=== PATIENT | male | born 1950 | race Caucasian/White ===

== ENCOUNTER 2016-11-22 08:23 | Day surgery (SDC) | payer MEDICARE, BC ==
[2016-11-22] MEDS ORDERED: Sodium Chloride 0.9% 10 ML Syringe FLUSH PRN (08:45)
[2016-11-22] MEDS ORDERED: Lactated Ringers 1,000 ML IV SCH (08:45)
[2016-11-22] MEDS ORDERED: Propofol 200 MG/20 ML SDV IV ONE (10:30)
[2016-11-22] MEDS ORDERED: Midazolam 1 MG/ML 2 ML SDV IV ONE (10:30)
--- NOTE | 2016-11-22 10:40 | PCM.OPNOTE ---
- General Post-Op/Procedure Note Date of Surgery/Procedure: 11/22/16 Operative Procedure(s): egd with bx Findings: erosive esophagtis intestinal metaplasia 10 cm hiatal hernia Pre Op Diagnosis: dysphagia Post-Op Diagnosis: erosive esophagtis. intestinal metaplasia 10 cm. hiatal hernia Anesthesia Technique: MAC Primary Surgeon: Mt Mcdowell Anesthesia Provider: Kimberly Mcmahon Pathology: DISTAL ESOPHAGUS Complications: None Condition: Good Free Text/Narrative:: SEE DICTATION
[2016-11-22 12:20] VITALS: BP 124/83
--- NOTE | 2016-11-22 16:03 | OR ---
DATE OF OPERATION: 11/22/2016 SURGEON: Mt Mcdowell MD PROCEDURE PERFORMED: Esophagogastroduodenoscopy with cold forceps biopsy. PREOPERATIVE DIAGNOSIS: Dysphagia. POSTOPERATIVE DIAGNOSIS: Hiatal hernia, 10 cm of intestinal metaplasia, and erosive esophagitis. INDICATIONS FOR PROCEDURE: This is a 66-year-old white male, who was referred with the above-mentioned complaints of dysphagia, and he was offered and accepted an EGD. After an excellent IV sedation was administered. The bite block was inserted. The flexible endoscope was passed without difficulty down the patient's esophagus into the stomach. The stomach was insufflated. The scope was passed through the pylorus to the second portion of the duodenum and then slowly withdrawn. The following findings were noted. Duodenum is unremarkable. Stomach demonstrates a hiatal hernia, and he appears to have approximately 4 to 5 cm of stomach into the chest. The esophagus reveals marked esophagitis with healing ulceration. There were also appears to be intestinal metaplasia. For a distance of approximately 10 cm. Biopsies were taken of these areas. The stomach was then deflated, and the scope was removed. The remainder of the esophageal exam was unremarkable. /[id number] /MODL
== END 2016-11-22 12:03 | disposition home or self-care (01) ==
LOC: FB.SDS 08:23
PROVIDERS: ATTEND Surgery
DX: K20.9 Esophagitis, unspecified (principal); K22.70 Barrett's esophagus without dysplasia; K44.9 Diaphragmatic hernia without obstruction or gangrene; Z79.899 Other long term (current) drug therapy; Z98.890 Other specified postprocedural states; Z87.891 Personal history of nicotine dependence
CPT/HCPCS: 00902; 43239; 88305; 88313; J2250; J2704; J7120

== ENCOUNTER 2017-10-17 11:29 | Inpatient (IN) | payer MEDICARE, BC ==
[2017-10-17] MEDS ORDERED: Aspirin 81 MG Tab.Chew PO ONE (11:38)
[2017-10-17] MEDS ORDERED: Sodium Chloride 0.9% 1,000 ML IV SCH (11:45)
[2017-10-17] MEDS ORDERED: Alum Hydroxide/Mag Hydroxide 30 ML, Lidocaine 2% 15 ML PO ONE ×2 (12:02)
[2017-10-17] MEDS ORDERED: Potassium Chloride 20 MEQ Tab.ER PO ONE (12:31)
--- NOTE | 2017-10-17 12:41 | EDM.PDOC ---
ED HPI GENERAL MEDICAL PROBLEM - General Chief Complaint: Chest Pain Stated Complaint: CHEST PAIN Time Seen by Provider: 10/17/17 11:29 Source of Information: Reports: Patient History Limitations: Reports: No Limitations - History of Present Illness INITIAL COMMENTS - FREE TEXT/NARRATIVE: c/o CP x 20 min c/o lower SSCP x 20 min, holding his grandson at home, pain 8/10 on arrival, EKG obtained, pain 4/10 5 min after arrival, a few minutes later pain was gone completely and RN did not give NTG no tachy, initial HR 72 after 30 minutes he had vague discomfort in his lower sternum and lower R chest , given GI cocktail without benefit smoked 1.5 ppd x 20y, stopped 20y ago alc in past, none now PO 92% on RA on arrival, no cough, no sob, no wheeze EKG with SR 73, PVBs, LVH, no ST change except flattening of T's laterally c/w strain ate toast and eggs for bfast at 9a, drank milk and H2O took no additional meds at home, took his AM pantoprazole and APAP EGD [address] Mcdowell showed marked esophagitis with healing ulceration and a 4-5 cm HH bilateral chest Pain Score (Numeric/FACES): 4 - Related Data Allergies Allergy/AdvReac Type Severity Reaction Status Date / Time No Known Allergies Allergy Verified 10/17/17 11:45 Home Meds: Home Meds Acetaminophen [Tylenol Arthritis] 650 mg PO DAILY 11/21/16 [History] Pantoprazole [ProTONIX] 40 mg PO DAILY #30 tab.cr 11/22/16 [Rx] Past Medical History HEENT History: Reports: Impaired Vision Cardiovascular History: Reports: None Other Cardiovascular History: CHECKED AT [facility] 10/2016 FOR CHEST DISCOMFORT/NAUSEA WITH CURRENT SX, INCLUDING EKG Respiratory History: Reports: None Gastrointestinal History: Reports: Gastritis Genitourinary History: Reports: Other (See Below) Other Genitourinary History: RENAL COLIC [employer]MENT [employer]ST[employer]ER History: Reports: None Musculoskeletal History: Reports: Fracture Other Musculoskeletal History: FX LEFT SHOULDER, COMPRESION FX OF LOWER BACK Neurological History: Reports: None Psychiatric History: Reports: None Endocrine/Metabolic History: Reports: None Hematologic History: Reports: None Oncologic (Cancer) History: Reports: None Dermatologic History: Reports: None - Infectious Disease History Infectious Disease History: Reports: None - Past Surgical History HEENT Surgical History: Reports: Naso-Sinus Surgery, Oral Surgery Social & Family History - Family History Family Medical History: Noncontributory - Tobacco Use Smoking Status *Q: Former Smoker Years of Tobacco use: 18 - Caffeine Use Caffeine Use: Reports: Coffee - Recreational Drug Use Recreational Drug Use: Yes Drug Use in Last 12 Months: No Recreational Drug Type: Reports: Marijuana/Hashish ED ROS GENERAL - Review of Systems Review Of Systems: See Below Constitutional: Reports: No Symptoms. Denies: Fever, Chills, Malaise, Weakness HEENT: Reports: No Symptoms Respiratory: Reports: No Symptoms Cardiovascular: Reports: Chest Pain. Denies: Dyspnea on Exertion, Edema, Lightheadedness, Orthopnea Endocrine: Reports: No Symptoms GI/Abdominal: Reports: No Symptoms. Denies: Abdominal Pain, Decreased Appetite , Nausea, Vomiting : Reports: No Symptoms Musculoskeletal: Reports: No Symptoms Skin: Reports: No Symptoms Neurological: Reports: No Symptoms Psychiatric: Reports: No Symptoms Hematologic/Lymphatic: Reports: No Symptoms Immunologic: Reports: No Symptoms ED EXAM, GENERAL - Physical Exam Exam: See Below Exam Limited By: No Limitations General Appearance: Alert, WD/WN, No Apparent Distress, Other (alert, pleasant, cooperative, NAD) Eye Exam: Bilateral Eye: EOMI, Normal Inspection Ears: Normal External Exam, Normal Canal, Hearing Grossly Normal Nose: Normal Inspection, Normal Mucosa, No Blood Throat/Mouth: Normal Inspection, Normal Lips, Normal Teeth, Normal Gums, Normal Oropharynx, Normal Voice, No Airway Compromise Head: Atraumatic, Normocephalic Neck: Normal Inspection, Supple, Non-Tender, Full Range of Motion Respiratory/Chest: No Respiratory Distress, Lungs Clear, Normal Breath Sounds, No Accessory Muscle Use, Other (no splinting, no dyspnea, no discomfort with DB) Cardiovascular: Regular Rate, Rhythm, No Edema, No Gallop, No JVD, No Murmur, No Rub GI/Abdominal: Normal Bowel Sounds, Soft, Non-Tender, No Organomegaly, No Distention, No Mass Back Exam: Normal Inspection, Full Range of Motion, NT Extremities: Normal Inspection, Normal Range of Motion, Non-Tender, Normal Capillary Refill, No Pedal Edema Neurological: Alert, Oriented, CN II-XII Intact, Normal Cognition, No Motor/ Sensory Deficits Psychiatric: Normal Affect, Normal Mood Skin Exam: Warm, Dry, Intact, Normal Color, No Rash Lymphatic: No Adenopathy Course - Vital Signs Last Recorded V/S: Last Vital Signs Temp 36.7 C 10/17/17 11:30 Pulse 80 10/17/17 11:30 Resp 20 10/17/17 11:30 BP 140/87 10/17/17 11:30 Pulse Ox 96 10/17/17 11:45 - Orders/Labs/Meds Orders: Active Orders 24 hr Category Date Time Status Abdomen Pelvis w Cont [CT] Stat Exams 10/17/17 12:48 Taken Ang Chest [CT] Stat Exams 10/17/17 12:48 Taken Acetaminophen [Tylenol Extra Strength] Med 10/17/17 15:39 Once 1,000 mg PO ONETIME ONE Diatrizoate Izabel/Diatrizoate Na [Gastrografin 37%] Med 10/17/17 14:15 Active 30 ml PO . DIRECTED Sodium Chloride 0.9% [Normal Saline] 1,000 ml Med 10/17/17 11:45 Active IV ASDIRECTED EKG 12 Lead [EK] Routine Ther 10/17/17 11:37 Ordered Medication Orders Diatrizoate Meglum/Diatrizoate Sod (Gastrografin 37%) 30 ml PO . DIRECTED [facility] Last Admin: 10/17/17 14:24 Dose: 30 ml Sodium Chloride (Normal Saline) 1,000 mls @ 999 mls/hr IV ASDIRECTED [facility] Last Admin: 10/17/17 11:50 Dose: 999 mls/hr Labs: Laboratory Tests 10/17/17 10/17/17 10/17/17 Range/Units 12:00 12:00 12:00 WBC 7.1 (4.5-12.0) X10-3/uL RBC 5.38 (4.30-5.75) x10(6)uL Hgb 15.7 H (11.5-15.5) g/dL Hct 47.0 (30.0-51.3) % MCV 87.4 (80-96) fL MCH 29.1 (27.7-33.6) pg MCHC 33.3 (32.2-35.4) g/dL RDW 14.0 (11.5-15.5) % Plt Count 269 (125-369) X10(3)uL MPV 8.6 (7.4-10.4) fL Neut % (Auto) 70.7 (46-82) % Lymph % (Auto) 21.3 (13-37) % [place] % (Auto) 5.8 (4-12) % Eos % (Auto) 2 (1.0-5.0) % Baso % (Auto) 1 (0-2) % Neut # (Auto) 5.1 (1.6-8.3) # Lymph # (Auto) 1.5 (0.6-5.0) # [place] # (Auto) 0.4 (0.0-1.3) # Eos # (Auto) 0.1 (0.0-0.8) # Baso # (Auto) 0.0 (0.0-0.2) # PT (8.7-11.1) INR (0.89-1.13) D-Dimer, Quantitative (100-400) ng/mL Sodium 142 (135-145) mmol/L Potassium 3.4 L (3.5-5.3) mmol/L Chloride 105 (100-110) mmol/L Carbon Dioxide 25 (21-32) mmol/L BUN 22 H (7-18) mg/dL Creatinine 1.1 (0.70-1.30) mg/dL Est Cr Clr Drug Dosing TNP Estimated GFR (MDRD) > 60 (>60) BUN/Creatinine Ratio 20.0 (9-20) Glucose 144 H (80-116) mg/dL Calcium 8.6 (8.6-10.2) mg/dL Magnesium (1.8-2.5) mg/dL Total Bilirubin 0.6 (0.1-1.3) mg/dL AST 40 H (5-25) IU/L ALT 50 H (12-36) U/L Alkaline Phosphatase 99 (56-112) IU/L Troponin I < 0.017 L (<0.017-0.056) ng/mL C-Reactive Protein 0.4 L (0.5-0.9) mg/dL NT-Pro-B Natriuret Pep (<=125) pg/mL Total Protein 7.6 (6.0-8.0) g/dL Albumin 3.3 (3.2-4.6) g/dL Globulin 4.3 g/dL Albumin/Globulin Ratio 0.8 Amylase 90 (25-115) U/L TSH, Ultra Sensitive (0.36-3.74) IU/mL Urine Color (YELLOW) Urine Appearance (CLEAR) Urine pH (5.0-6.5) Ur Specific [place] (1.010-1.025) Urine Protein (NEGATIVE) mg/dL Urine Glucose (UA) (NEGATIVE) mg/dL Urine Ketones (NEGATIVE) mg/dL Urine Occult Blood (NEGATIVE) Urine Nitrite (NEGATIVE) Urine Bilirubin (NEGATIVE) Urine Urobilinogen (NEGATIVE) mg/dL Ur Leukocyte Esterase (NEGATIVE) Urine RBC (0) Urine WBC (0) Ur Squamous Epith Cells (NS,R,O) Urine Bacteria (NS) 10/17/17 10/17/17 10/17/17 Range/Units 12:00 12:00 12:00 WBC (4.5-12.0) X10-3/uL RBC (4.30-5.75) x10(6)uL Hgb (11.5-15.5) g/dL Hct (30.0-51.3) % MCV (80-96) fL MCH (27.7-33.6) pg MCHC (32.2-35.4) g/dL RDW (11.5-15.5) % Plt Count (125-369) X10(3)uL MPV (7.4-10.4) fL Neut % (Auto) (46-82) % Lymph % (Auto) (13-37) % [place] % (Auto) (4-12) % Eos % (Auto) (1.0-5.0) % Baso % (Auto) (0-2) % Neut # (Auto) (1.6-8.3) # Lymph # (Auto) (0.6-5.0) # [place] # (Auto) (0.0-1.3) # Eos # (Auto) (0.0-0.8) # Baso # (Auto) (0.0-0.2) # PT 11.6 H (8.7-11.1) INR 1.15 H (0.89-1.13) D-Dimer, Quantitative 548 H (100-400) ng/mL Sodium (135-145) mmol/L Potassium (3.5-5.3) mmol/L Chloride (100-110) mmol/L Carbon Dioxide (21-32) mmol/L BUN (7-18) mg/dL Creatinine (0.70-1.30) mg/dL Est Cr Clr Drug Dosing Estimated GFR (MDRD) (>60) BUN/Creatinine Ratio (9-20) Glucose (80-116) mg/dL Calcium (8.6-10.2) mg/dL Magnesium (1.8-2.5) mg/dL Total Bilirubin (0.1-1.3) mg/dL AST (5-25) IU/L ALT (12-36) U/L Alkaline Phosphatase (56-112) IU/L Troponin I (<0.017-0.056) ng/mL C-Reactive Protein (0.5-0.9) mg/dL NT-Pro-B Natriuret Pep 154 H (<=125) pg/mL Total Protein (6.0-8.0) g/dL Albumin (3.2-4.6) g/dL Globulin g/dL Albumin/Globulin Ratio Amylase (25-115) U/L TSH, Ultra Sensitive (0.36-3.74) IU/mL Urine Color (YELLOW) Urine Appearance (CLEAR) Urine pH (5.0-6.5) Ur Specific [place] (1.010-1.025) Urine Protein (NEGATIVE) mg/dL Urine Glucose (UA) (NEGATIVE) mg/dL Urine Ketones (NEGATIVE) mg/dL Urine Occult Blood (NEGATIVE) Urine Nitrite (NEGATIVE) Urine Bilirubin (NEGATIVE) Urine Urobilinogen (NEGATIVE) mg/dL Ur Leukocyte Esterase (NEGATIVE) Urine RBC (0) Urine WBC (0) Ur Squamous Epith Cells (NS,R,O) Urine Bacteria (NS) 10/17/17 10/17/17 10/17/17 Range/Units 12:00 12:00 15:15 WBC (4.5-12.0) X10-3/uL RBC (4.30-5.75) x10(6)uL Hgb (11.5-15.5) g/dL Hct (30.0-51.3) % MCV (80-96) fL MCH (27.7-33.6) pg MCHC (32.2-35.4) g/dL RDW (11.5-15.5) % Plt Count (125-369) X10(3)uL MPV (7.4-10.4) fL Neut % (Auto) (46-82) % Lymph % (Auto) (13-37) % [place] % (Auto) (4-12) % Eos % (Auto) (1.0-5.0) % Baso % (Auto) (0-2) % Neut # (Auto) (1.6-8.3) # Lymph # (Auto) (0.6-5.0) # [place] # (Auto) (0.0-1.3) # Eos # (Auto) (0.0-0.8) # Baso # (Auto) (0.0-0.2) # PT (8.7-11.1) INR (0.89-1.13) D-Dimer, Quantitative (100-400) ng/mL Sodium (135-145) mmol/L Potassium (3.5-5.3) mmol/L Chloride (100-110) mmol/L Carbon Dioxide (21-32) mmol/L BUN (7-18) mg/dL Creatinine (0.70-1.30) mg/dL Est Cr Clr Drug Dosing Estimated GFR (MDRD) (>60) BUN/Creatinine Ratio (9-20) Glucose (80-116) mg/dL Calcium (8.6-10.2) mg/dL Magnesium 1.8 (1.8-2.5) mg/dL Total Bilirubin (0.1-1.3) mg/dL AST (5-25) IU/L ALT (12-36) U/L Alkaline Phosphatase (56-112) IU/L Troponin I (<0.017-0.056) ng/mL C-Reactive Protein (0.5-0.9) mg/dL NT-Pro-B Natriuret Pep (<=125) pg/mL Total Protein (6.0-8.0) g/dL Albumin (3.2-4.6) g/dL Globulin g/dL Albumin/Globulin Ratio Amylase (25-115) U/L TSH, Ultra Sensitive 3.18 (0.36-3.74) IU/mL Urine Color Yellow (YELLOW) Urine Appearance Clear (CLEAR) Urine pH 5.0 (5.0-6.5) Ur Specific [place] 1.020 (1.010-1.025) Urine Protein Negative (NEGATIVE) mg/dL Urine Glucose (UA) Normal (NEGATIVE) mg/dL Urine Ketones Negative (NEGATIVE) mg/dL Urine Occult Blood Negative (NEGATIVE) Urine Nitrite Negative (NEGATIVE) Urine Bilirubin Negative (NEGATIVE) Urine Urobilinogen Normal (NEGATIVE) mg/dL Ur Leukocyte Esterase Negative (NEGATIVE) Urine RBC 0-5 (0) Urine WBC 0-5 (0) Ur Squamous Epith Cells Occasional (NS,R,O) Urine Bacteria Rare H (NS) Meds: Medications Generic Name Dose Route Start Last Admin Trade Name Freq PRN Reason Stop Dose Admin Diatrizoate Meglum/Diatrizoate Sod 30 ml 10/17/17 14:15 10/17/17 14:24 Gastrografin 37% PO 30 ml . DIRECTED IMTIAZ Administration Sodium Chloride 1,000 mls @ 999 mls/hr 10/17/17 11:45 10/17/17 11:50 Normal Saline IV 999 mls/hr ASDIRECTED IMTIAZ Administration Discontinued Medications Generic Name Dose Route Start Last Admin Trade Name Freq PRN Reason Stop Dose Admin Aspirin 324 mg 10/17/17 11:38 10/17/17 11:33 Aspirin PO 10/17/17 11:39 324 mg ONETIME ONE Administration Al Hydroxide/Mg Hydroxide 30 0 ml 10/17/17 12:02 10/17/17 12:12 ml/ Lidocaine HCl 15 ml PO 10/17/17 12:03 45 ml ONETIME ONE Administration Iopamidol 100 ml 10/17/17 14:01 10/17/17 14:24 Isovue-370 (76%) IV 10/17/17 14:02 100 ml . DIRECTED ONE Administration Ketorolac Tromethamine 30 mg 10/17/17 15:37 Toradol IVPUSH 10/17/17 15:38 ONETIME ONE Potassium Chloride 40 meq 10/17/17 12:31 10/17/17 12:43 Klor-Con M20 PO 10/17/17 12:32 40 meq ONETIME ONE Administration - Re-Assessments/Exams Free Text/Narrative Re-Assessment/Exam: 10/17/17 15:39 still soreness at his R lower hemithorax at the [facility], chest CTA done d/t inc'd d- dimer altho no PE seen, did show evidence of a segmental pneumonia of the RLL as well as pleurisy as per radiology RLL pleuritic pain, sob, hypoxia (92-95% on 2 liters NC) and inc'd d-dimer (as inflammatory marker) support dx of pneumonia nl WBC/segs/CRP do not also with evidence of LVH with strain d/w with hospitalist who accepted him in admission, pt agrees, will give Toradol and APAP for his pain pt admitted 5-6y ago for UGI bleed, kept for 7d, [place] [facility] and a question of a Yazmin-Cobb tear was raised, however no varices reported on EGD 1y ago pt's 1y ago July, pt's house left to his son, son and his and infant moved into to house, son says pt has had the occasional panic attack Departure - Departure Time of Disposition: 15:42 Disposition: Admitted As Inpatient 66 Condition: Fair Clinical Impression: Chest pain, rule out acute myocardial infarction, RLL pneumonia, Pleurisy, LVH (left ventricular hypertrophy), Nonspecific ST-T wave electrocardiographic changes, Hypoxia, Elevated brain natriuretic peptide (BNP) level, Premature ventricular beats, Elevated LFTs, Elevated INR, Acute prerenal azotemia, Former smoker Referrals: Chi Ortega MD [Primary Care Provider] - Forms: ED Department Discharge - My Orders Last 24 Hours: My Active Orders 10/17/17 11:37 EKG 12 Lead [EK] Routine 10/17/17 11:45 Sodium Chloride 0.9% [Normal Saline] 1,000 ml IV ASDIRECTED 10/17/17 12:48 Abdomen Pelvis w Cont [CT] Stat Ang Chest [CT] Stat 10/17/17 14:15 Diatrizoate Izabel/Diatrizoate Na [Gastrografin 37%] 30 ml PO . DIRECTED 10/17/17 15:39 Acetaminophen [Tylenol Extra Strength] 1,000 mg PO ONETIME ONE - Assessment/Plan Last 24 Hours: My Active Orders 10/17/17 11:37 EKG 12 Lead [EK] Routine 10/17/17 11:45 Sodium Chloride 0.9% [Normal Saline] 1,000 ml IV ASDIRECTED 10/17/17 12:48 Abdomen Pelvis w Cont [CT] Stat Ang Chest [CT] Stat 10/17/17 14:15 Diatrizoate Izabel/Diatrizoate Na [Gastrografin 37%] 30 ml PO . DIRECTED 10/17/17 15:39 Acetaminophen [Tylenol Extra Strength] 1,000 mg PO ONETIME ONE
--- NOTE | 2017-10-17 13:44 | CR ---
INDICATION: Chest pain. CHEST: An AP upright portable view of the chest 10/17/2017 was compared with and 02/21/2009. At the right lung base, there is an appearance suggesting a localized eventration. Poor inspiration is noted emphasizing markings and heart size. The heart likely is within normal limits in size, allowing for this finding. The aorta is slightly tortuous. A definite active infiltrate or effusion was not identified. Overlying EKG leads are noted. IMPRESSION: No acute process. MTDD
[2017-10-17] MEDS ORDERED: Iopamidol 755 Mg/ML 100 ML Bottle IV ONE (14:01)
[2017-10-17] MEDS ORDERED: Diatrizoate Meglumine/Diatrizoate Sodium 37% 30 ML Bottle PO SCH (14:15)
[2017-10-17] MEDS ORDERED: Ketorolac 30 MG/ML SDV IVPUSH ONE (15:37)
[2017-10-17] MEDS ORDERED: Acetaminophen 500 MG Tab PO ONE (15:39)
--- NOTE | 2017-10-17 15:43 | CT ---
INDICATION: Increased D-dimer. Question PE. Patient with chest pain all over. COMPUTERIZED TOMOGRAPHY ANGIOGRAPHY WITH CONTRAST: TECHNIQUE: Spiral 1.25-mm axial images were obtained through the chest and 2.5- mm helical images were obtained through the abdomen and pelvis with 100 mL Isovue-370 at 3 mL per second. Sagittal and coronal reconstructions were obtained 10/17/2017. No comparison study was available. Oral contrast was also utilized. Total Exam DLP = 1541.05 mGy-cm. CT CHEST: Examination of the chest was obtained by CT as noted above and revealed a somewhat wedge-shaped area of consolidation in the superior segment of the right lower lobe with underlying pleural reaction. This finding could be seen with a pulmonary embolus or possibly pneumonia. There are some heavy markings extending along the posterior wall of the chest bilaterally, likely fibrotic in nature. However, no other areas of possible pneumonia or infarct were identified. The mediastinum showed some evidence for lymphadenopathy which is nonspecific, since it is relatively minimal. The heart appears somewhat enlarged. No evidence of pulmonary embolus could be identified. A mild dextroconvex scoliosis of the thoracic spine is noted. IMPRESSION: 1. Focal area of consolidating pneumonia and pleuritis in the superior segment of the right lower lobe. 2. Probable pulmonary fibrosis in the lower lobes at the lung bases bilaterally. 3. Probable ASHD - heart appears enlarged slightly. No evidence of PE identified. Report was called to Dr. Bro at 1509 hours, 10/17/2017. [facility]
--- NOTE | 2017-10-17 15:44 | CT ---
INDICATION: Increased D-dimer. Question PE. Patient with chest pain all over. TECHNIQUE: Spiral 1.25-mm axial images were obtained through the chest and 2.5- mm helical images were obtained through the abdomen and pelvis with 100 mL Isovue-370 at 3 mL per second. Sagittal and coronal reconstructions were obtained 10/17/2017. No comparison study was available. Oral contrast was also utilized. Total Exam DLP = 1541.05 mGy-cm. CT ABDOMEN: Examination of the abdomen was obtained by CT as noted above. The liver appears normal. The gallbladder is distended in appearance with a maximum diameter of approximately 11 cm. No definite calculi or wall thickening or pericholecystic fluid was noted, however. This should be correlated clinically. It may simply be on the basis of NPO status. If symptoms are referable to the area of the gallbladder, ultrasound of the gallbladder may be helpful for further evaluation. The adrenal glands appeared normal. The right kidney had a normal appearance. The left kidney showed evidence of multiple parapelvic cysts, the largest of which measured approximately 28 mm. Calcifications are noted in the aorta, as well as the iliac and femoral arteries. The appendix appeared normal and is visualized on axial images #339 through # 360. Within the appendix, there appears to be an appendicolith. However, no evidence of appendicitis was seen. No evidence of bowel obstruction or free air was seen. Descending colon diverticulosis is noted, without evidence of diverticulitis. Diverticulosis is more prominent in the sigmoid colon, still without evidence of diverticulitis. The prostate did not appear grossly enlarged. The urinary bladder appeared unremarkable. No evidence of hernias, ventral or inguinal, is suggested. The stomach appeared unremarkable. Degenerative changes and disk disease are noted at multiple lower thoracic/ upper lumbar levels, and also at L4-5, L5-S1, with vacuum disk phenomena at multiple sites. IMPRESSION: 1. Prominent appearing gallbladder measures enlarged, could be on the basis of NPO status or acalculous cholecystitis, but should be correlated clinically. Gallbladder ultrasound may be helpful, depending upon clinical correlation. 2. Parapelvic cysts left kidney. 3. ASD. 4. Degenerative changes and disk disease thoracolumbar spine. 5. Descending and sigmoid diverticulosis without definite evidence of diverticulitis. Report was called to Dr. Bro at 1509 hours, 10/17/2017. [facility]
[2017-10-17] MEDS ORDERED: Nitroglycerin 0.4 MG Tab.SL SL PRN (16:45)
--- NOTE | 2017-10-17 17:28 | PCM.HP ---
H&P History of Present Illness - General Date of Service: 10/17/17 Admit Problem/Dx: Admission Diagnosis/Problem Admission Diagnosis/Problem Chest pain, rule out acute myocardial infarction - History of Present Illness Initial Comments - Free Text/Narative: Patient is a 67-year-old male who doesn't doctor. He has no known medical problems other than a history of upper GI bleed 5 or 6 years ago and esophagitis /gastritis which was diagnosed in October 2016 via scope after second episode of vomiting blood. Last night he developed some pain across the entire chest anteriorly which was an aching pain perhaps 4 or 5 out of 10. It did not come on with exertion. He had no associated other symptoms with it. It lasted about 30 minutes and he went and laid down and it went away. This morning he was holding his grandson and the pain recurred at about 10:30 in the morning. This time it was much more severe, about an 8 out of 10, and associated with shortness of breath, diaphoresis, No radiation. No nausea/vomiting. No dizziness. It lasted about 20 minutes at home than they came into the emergency department for 45 minutes in all. He was given aspirin on his arrival in the emergency department but the pain was gone before he got a sublingual nitroglycerin. He had another episode here in the exam room when he went into the bathroom to change his clothes and this was about a 6 out of 10 at its worst. It was associated with some shortness of breath. No diaphoresis. No nausea or vomiting. He was still having the pain when I came in to see him ( lasted about 30 minutes total) and a sublingual nitroglycerin was given then but by that point the pain had almost completely resolved. He is now pain-free. He has no history of hypertension, no history of hyperlipidemia, no family history of NC. Quit smoking over 20 years ago. No alcohol use. Past medical history: #1 history of upper GI bleed/gastritis/esophagitis as noted above. #2 history of superficial thrombophlebitis in the right leg about a year ago. No anticoagulants used. #3 history of wisdom tooth extraction. Social history: Former smoker, quit 20 years ago. one year ago. His son and and grandson live with him in his home in [place]. 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 Family history: He has 3 healthy sons. His mother of some type of cancer in her 70s. Patient's father in his 50s from emphysema and was a heavy smoker. He also had dementia. The patient has 1 brother with lung cancer which was resected for cure. 2 other brothers who are healthy and 2 sisters who are healthy. bilateral chest Pain Score (Numeric/FACES): 4 - Related Data Allergies/Adverse Reactions: Allergies Allergy/AdvReac Type Severity Reaction Status Date / Time No Known Allergies Allergy Verified 10/17/17 11:45 Home Medications: Home Meds Acetaminophen [Tylenol Arthritis] 650 mg PO DAILY 11/21/16 [History] Pantoprazole [ProTONIX] 40 mg PO DAILY #30 tab.cr 11/22/16 [Rx] Past Medical History HEENT History: Reports: Impaired Vision Cardiovascular History: Reports: None Other Cardiovascular History: CHECKED AT [facility] 10/2016 FOR CHEST DISCOMFORT/NAUSEA WITH CURRENT SX, INCLUDING EKG Respiratory History: Reports: None Other Respiratory History: former smoker for 20 years of 1 and 1/2 pack per day ; quit about 20 years. 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 Musculoskeletal History: Reports: Fracture Other Musculoskeletal History: FX LEFT SHOULDER, COMPRESION FX OF LOWER BACK Neurological History: Reports: None Psychiatric History: Reports: None Endocrine/Metabolic History: Reports: None Hematologic History: Reports: None Oncologic (Cancer) History: Reports: None Dermatologic History: Reports: None - Infectious Disease History Infectious Disease History: Reports: None - Past Surgical History Head Surgeries/Procedures: Reports: None HEENT Surgical History: Reports: Naso-Sinus Surgery, Oral Surgery Social & Family History - Family History Family Medical History: Noncontributory - Tobacco Use Smoking Status *Q: Former Smoker Years of Tobacco use: 18 Used Tobacco, but Quit: Yes Month/Year Tobacco Last Used: October Second Hand Smoke Exposure: No - Caffeine Use Caffeine Use: Reports: Coffee - Recreational Drug Use Recreational Drug Use: No Drug Use in Last 12 Months: No Recreational Drug Type: Reports: Marijuana/Hashish H&P Review of Systems - Review of Systems: Review Of Systems: See Below General: Reports: No Symptoms HEENT: Reports: No Symptoms, Post Nasal Drip Pulmonary: Reports: Cough (had a deep cough with infection in July, a couple of weeks ago also had a cold/cough go through the home. They thought it was influenza. Patient didn't feel ill, but son thought he had a cough and congestion. No fevers, chills, or sweats.) Cardiovascular: Reports: Chest Pain (as per HPI.) Gastrointestinal: Reports: No Symptoms Genitourinary: Reports: No Symptoms Musculoskeletal: Reports: Back Pain (chronic.) Skin: Reports: No Symptoms Exam - Exam Exam: See Below - Vital Signs Vital Signs: Last Vital Signs Temp 36.7 C 10/17/17 11:30 Pulse 78 10/17/17 16:27 Resp 23 H 10/17/17 16:27 BP 159/86 H 10/17/17 16:51 Pulse Ox 98 10/17/17 16:27 Weight: 103.782 kg - Exam Quality Assessment: Supplemental Oxygen General: Alert, Oriented, Cooperative HEENT: PERRLA, Posterior Pharynx Clear Neck: Supple Lungs: Clear to Auscultation, Normal Respiratory Effort Cardiovascular: Regular Rate, Regular Rhythm, Normal S1, Normal S2 GI/Abdominal Exam: Normal Bowel Sounds, Soft, Non-Tender, No Distention, No Mass Back Exam: Normal Inspection, Full Range of Motion Extremities: Normal Inspection, Normal Range of Motion, No Pedal Edema Psychiatric: Alert, Normal Affect, Normal Mood - Patient Data Result Diagrams: 10/17/17 12:00 10/17/17 12:00 Imaging Impressions Last 24 hrs: Chest x-ray was negative. Abdomen/Pelvis and CT angiogram showed a right lower lobe wedge-shaped consolidation fever pneumonia. I believe the abdominal CT scan was done because the patient's pain was both across the lower chest upper abdomen area. EKG INTERPRETATION EKG Date: 10/17/17 (Normal sinus rhythm with a rate of 73, 1 PVC, ST segments are flat in V5 and V6 but no ST depression or elevation and no T-wave inversion. ) *Q Meaningful Use (ADM) - VTE *Q VTE Criteria *Q: - Stroke *Q Stroke Criteria *Q: - AMI *Q AMI Criteria *Q: - Problem List (1) Chest pain, rule out acute myocardial infarction SNOMED Code(s): 13786404 ICD Code: R07.9 - CHEST PAIN, UNSPECIFIED Status: Acute Current Visit: Yes Problem Details: Patient's pain is somewhat classic and with his recurrent episodes I would have a very low threshold for putting him on a nitroglycerin drip. Will repeat troponin at 8 PM tonight and again in the morning. If troponin tonight is positive would start him on nitroglycerin drip and transfer tomorrow. (2) RLL pneumonia SNOMED Code(s): 449205626 ICD Code: J18.1 - LOBAR PNEUMONIA, UNSPECIFIED ORGANISM Status: Acute Current Visit: Yes Problem Details: The patient doesn't have symptoms classic for pneumonia, with his history of recent illness I am going to go ahead and treat with by mouth Levaquin. This abnormality should definitely be followed up with repeat CT. (3) DVT prophylaxis SNOMED Code(s): 857898600 ICD Code: [id number] - Status: Acute Current Visit: Yes Problem Details: Standard SQ Lovenox. Problem List Initiated/Reviewed/Updated: Yes Orders Last 24hrs: Active Orders 24 hr Category Date Time Status Admission Status [Patient Status] [ADT] Routine ADT 10/17/17 15:50 Active Cardiac Monitoring [RC] CONTINUOUS Care 10/17/17 16:27 Ordered Height and Weight [RC] DAILY Care 10/17/17 16:27 Ordered Intake and Output [RC] QSHIFT Care 10/17/17 16:27 Ordered Notify Provider Vital Signs [RC] ASDIRECTED Care 10/17/17 16:27 Ordered Oxygen Therapy [RC] PRN Care 10/17/17 16:27 Ordered Pulse Oximetry [RC] PRN Care 10/17/17 16:27 Ordered Up ad Rachana [RC] ASDIRECTED Care 10/17/17 16:27 Ordered Vital Signs [RC] Q4H Care 10/17/17 16:27 Ordered TROPONIN I [CHEM] AM Lab 10/18/17 05:11 Ordered TROPONIN I [CHEM] Routine Lab 10/17/17 20:00 Ordered Aspirin [Halfprin] Med 10/18/17 09:00 Ordered 81 mg PO DAILY Nitroglycerin [Nitrostat] Med 10/17/17 16:30 Ordered 0.3 mg SL Q5M PRN Code Status [Resuscitation Status] Routine Resus Stat 10/17/17 17:21 Ordered Medication Orders Aspirin (Halfprin) 81 mg PO DAILY [facility] Diatrizoate Meglum/Diatrizoate Sod (Gastrografin 37%) 30 ml PO . DIRECTED [facility] Last Admin: 10/17/17 14:24 Dose: 30 ml Sodium Chloride (Normal Saline) 1,000 mls @ 999 mls/hr IV ASDIRECTED [facility] Last Admin: 10/17/17 11:50 Dose: 999 mls/hr Nitroglycerin (Nitrostat) 0.4 mg SL Q5M PRN PRN Reason: CHEST PAIN Last Admin: 10/17/17 16:51 Dose: 0.4 mg Assessment/Plan Comment:: CODE STATUS discussed at length with the patient and his son present. The patient is a full code. However he would not want to be kept alive on machines or as a vegetable for any extended period of time. Patient is full code.
[2017-10-17] MEDS ORDERED: Enoxaparin 40 MG/0.4 ML Syringe SUBCUT SCH (17:45)
[2017-10-17] MEDS ORDERED: Levofloxacin 500 MG Tab PO SCH (18:00)
[2017-10-18] MEDS ORDERED: Nitroglycerin/D5W 25 MG/250 ML BOTTLE IV SCH (08:45)
[2017-10-18] MEDS ORDERED: Aspirin 81 MG Tab.EC PO SCH (09:00)
[2017-10-18 09:04] VITALS: BP 126/74
--- NOTE | 2017-10-18 09:18 | PCM.DCSUM1 ---
Discharge Summary - Hospital Course Free Text/Narrative:: Date of admission: 10/17/2017 Date of discharge/transfer: 10/18/2017 Admission diagnosis: Chest pain/rule out acute myocardial infarction. Discharge diagnosis: chest pain with some typical features, patient still having intermittent pain. Although patient has previous history of GI etiology, he's had no cardiac evaluation recently and does not Dr. beckham risk stratification is difficult. I feel the patient requires further testing with a stress test prior to discharge. Unfortunately we can't do that here. I recommended we transfer the patient to high-level care where he can have stress testing and be discharged if this is negative. Patient will be transferred to [place] with Dr. Ivory as accepting physician. Secondary diagnosis: The patient had had no recent symptoms of URI or LRI infection. However he was planned scanned in the emergency department and CT angiogram showed no PE but a small right lower lobe wedge-shaped consolidation which the radiologist favored infectious. The patient was started on Levaquin 500 milligrams daily for 5 days for this, first dose 10/17. In reviewing the images, I don't feel this looks like a pneumonia and should be followed up with further imaging to resolution or further evaluation. History of present illness: Patient is a 67-year-old otherwise healthy male with a history of only esophagitis/upper GI bleed 5 or 6 years ago with recurrent episode in October 2016. No history of hypertension, hyperlipidemia, but does not doctor. Quit smoking 20 years ago but had a significant smoking history prior to that. No family history of coronary disease. Patient the night prior to admission had a 30 minute episode of moderate chest achiness which was nothing like his previous reflux disease associated with some shortness of breath. He laid down and it went away. The next morning he was playing with his grandson and he had the acute onset of chest pressure across the entire anterior chest 8 out of 10 with associated shortness of breath and diaphoresis. He laid down and it did not improve. He came into the emergency department and after 4 baby aspirin and the pain resolved. Patient was admitted for rule out MA. Hospital course: Initial EKG was unremarkable. Troponins were negative 3. The day of admission, the patient had an episode of recurrent pain when he was changing clothes in the bathroom which resulted to sublingual nitroglycerin. The morning of discharge, the patient had an episode of mild discomfort in the left lower chest /upper left abdomen. On further questioning, he noted this is been coming and going since hospitalization but it was so mild he didn't mention it. No associated symptoms. The patient other episodes of chest pain or shortness of breath. No diaphoresis. No nausea or vomiting. Vital signs had been stable. - Discharge Data Discharge Date: 10/18/17 Discharge Disposition: DC/Tfer to Acute Hospital 02 Condition: Fair - Discharge Diagnosis/Problem(s) (1) Chest pain, rule out acute myocardial infarction SNOMED Code(s): 88510383 ICD Code: R07.9 - CHEST PAIN, UNSPECIFIED Status: Acute Current Visit: Yes Problem Details: With classic symptoms yesterday and now continuing intermittent left lower chest/upper abd discomfort, I feel patient should be stressed before discharge. Contacted [facility] 1-CALL and patient will be transferred to [place] for further evaluation. Patient started on Nitro drip this am. Will be transferred by ambulance. Dr. Ivory accepting. (2) RLL pneumonia SNOMED Code(s): 696209141 ICD Code: J18.1 - LOBAR PNEUMONIA, UNSPECIFIED ORGANISM Status: Acute Current Visit: Yes Problem Details: In reviewing the images, I don't believe this is a pneumonia, particularly with lack of pneumonia symptoms. I am concerned this is some type of nodule. Patient can complete levaquin but imaging should be repeated at some interval to see if this resolves/improves/ grows with time. Discussed with patient. (3) DVT prophylaxis SNOMED Code(s): 032137642 ICD Code: [id number] - Status: Acute Current Visit: Yes Problem Details: Standard SQ Lovenox. - Patient Instructions Diet: NPO - Discharge Plan Home Medications: Home Meds Acetaminophen [Tylenol Arthritis] 650 mg PO DAILY 11/21/16 [History] Pantoprazole [ProTONIX] 40 mg PO DAILY #30 tab.cr 11/22/16 [Rx] Patient Handouts: Deep Vein Thrombosis, Community-Acquired Pneumonia, Adult, Community-Acquired Pneumonia, Adult, Dniu-sb-Lsva Forms: ED Department Discharge Referrals: Chi Ortega MD [Primary Care Provider] - - Discharge Summary/Plan Comment DC Time >30 min.: No - Patient Data Vitals - Most Recent: Last Vital Signs Temp 36.4 C 10/18/17 08:06 Pulse 79 10/18/17 08:06 Resp 18 10/18/17 08:06 BP 126/74 10/18/17 09:03 Pulse Ox 96 10/18/17 08:06 Weight - Most Recent: 103.238 kg I&O - Last 24 hours: Intake & Output 10/17/17 10/18/17 10/18/17 22:59 06:59 14:59 Intake Total 300 250 Output Total 200 600 250 Balance 100 -350 -250 Lab Results - Last 24 hrs: Laboratory Results - last 24 hr 10/17/17 10/18/17 Range/Units 20:00 06:25 Troponin I < 0.017 L < 0.017 L (<0.017-0.056) ng/mL Med Orders - Current: Current Medications Aspirin (Halfprin) 81 mg PO DAILY [facility] Last Admin: 10/18/17 08:31 Dose: 81 mg Diatrizoate Meglum/Diatrizoate Sod (Gastrografin 37%) 30 ml PO . DIRECTED [facility] Last Admin: 10/17/17 14:24 Dose: 30 ml Enoxaparin Sodium (Lovenox) 40 mg SUBCUT DAILY@1800 IMTIAZ Sodium Chloride (Normal Saline) 1,000 mls @ 999 mls/hr IV ASDIRECTED [facility] Last Admin: 10/17/17 11:50 Dose: 999 mls/hr Nitroglycerin/Dextrose (Nitroglycerin 25 Mg/D5w 250 Ml) 25 mg in 250 mls @ 6 mls/hr IV TITRATE IMTIAZ; 10 MCG/MIN PRN Reason: Protocol Last Admin: 10/18/17 09:03 Dose: 5 mcg/min, 3 mls/hr Levofloxacin (Levaquin) 500 mg PO Q24H [facility] Last Admin: 10/17/17 18:19 Dose: 500 mg Nitroglycerin (Nitrostat) 0.4 mg SL Q5M PRN PRN Reason: CHEST PAIN Last Admin: 10/17/17 16:51 Dose: 0.4 mg Discontinued Medications Acetaminophen (Tylenol Extra Strength) 1,000 mg PO ONETIME ONE Stop: 10/17/17 15:40 Last Admin: 10/17/17 16:18 Dose: 1,000 mg Aspirin (Aspirin) 324 mg PO ONETIME ONE Stop: 10/17/17 11:39 Last Admin: 10/17/17 11:33 Dose: 324 mg Al Hydroxide/Mg Hydroxide 30 (ml/ Lidocaine HCl 15 ml) 0 ml PO ONETIME ONE Stop: 10/17/17 12:03 Last Admin: 10/17/17 12:12 Dose: 45 ml Enoxaparin Sodium (Lovenox) 40 mg SUBCUT DAILY IMT[facility] Last Admin: 10/17/17 18:19 Dose: 40 mg Iopamidol (Isovue-370 (76%)) 100 ml IV . DIRECTED ONE Stop: 10/17/17 14:02 Last Admin: 10/17/17 14:24 Dose: 100 ml Ketorolac Tromethamine (Toradol) 30 mg IVPUSH ONETIME ONE Stop: 10/17/17 15:38 Last Admin: 10/17/17 15:41 Dose: 30 mg Potassium Chloride (Klor-Con M20) 40 meq PO ONETIME ONE Stop: 10/17/17 12:32 Last Admin: 10/17/17 12:43 Dose: 40 meq - Exam General: Reports: Alert, Oriented, Cooperative HEENT: Reports: Pupils Equal, Pupils Reactive Neck: Reports: Supple Lungs: Reports: Clear to Auscultation, Normal Respiratory Effort Cardiovascular: Reports: Regular Rate, Regular Rhythm, No Murmurs GI/Abdominal Exam: Normal Bowel Sounds, Soft Back Exam: Reports: Normal Inspection Extremities: Normal Inspection, No Pedal Edema Skin: Reports: Warm, Dry, Intact Psy/Mental Status: Reports: Alert, Anxious *Q Meaningful Use (DIS) - VTE *Q VTE Criteria *Q: - Stroke *Q Stroke Criteria *Q: - AMI *Q AMI Criteria *Q:
[2017-10-18] MEDS ORDERED: Enoxaparin 40 MG/0.4 ML Syringe SUBCUT SCH (18:00)
== END 2017-10-18 10:11 | DRG 280 ==
LOC: FB.ED 11:29 → FB.ICU 15:49
PROVIDERS: ADMIT Family Medicine; ATTEND Family Medicine
DX: R07.9 Chest pain, unspecified (principal); I21.9 Acute myocardial infarction, unspecified; J18.1 Lobar pneumonia, unspecified organism; Z87.891 Personal history of nicotine dependence; R94.31 Abnormal electrocardiogram [ECG] [EKG]; I51.7 Cardiomegaly; R79.89 Other specified abnormal findings of blood chemistry; R10.10 Upper abdominal pain, unspecified; R09.02 Hypoxemia; R79.1 Abnormal coagulation profile; H54.7 Unspecified visual loss; Z87.19 Personal history of other diseases of the digestive system
CPT/HCPCS: 36415; 71045; 71275; 74177; 80053; 81001; 82150; 83735; 83880; 84443; 84484; 85025; 85379; 85610; 86140; 93005; 96361; 96374; 99285; A9270 ×5; J1885; J7040; Q9967; J1650

== ENCOUNTER 2018-03-12 06:46 | Day surgery (SDC) | payer MEDICARE, BC ==
[~2018-03-12 06:46] MED LIST: Lactated Ringers 1,000 ML IV SCH; Sodium Chloride 0.9% 10 ML Syringe FLUSH PRN
[2018-03-12] MEDS ORDERED: Midazolam 1 MG/ML 2 ML SDV IV ONE (08:00)
[2018-03-12] MEDS ORDERED: fentaNYL 100 MCG/2 ML SDV IV ONE (08:00)
[2018-03-12] MEDS ORDERED: Propofol 200 MG/20 ML SDV IV ONE (08:00)
--- NOTE | 2018-03-12 09:13 | OR ---
DATE OF OPERATION: 03/12/2018 SURGEON: Mt Mcdowell MD PROCEDURES PERFORMED: Upper endoscopy with cold forceps biopsy and colonoscopy with hot loop snare biopsy. PREOPERATIVE DIAGNOSIS: History of Wilson's esophagus and need for colon cancer screening. INDICATIONS FOR PROCEDURE: This is a 68-year-old white male who presents for his followup endoscopy for Wilson's esophagus. In addition, he is due for a screening colonoscopy, and he was offered and accepted both of these procedures. DESCRIPTION OF OPERATION: After an excellent IV sedation was administered, the bite block was inserted. The flexible endoscope was passed without difficulty down the patient's esophagus and into the stomach. The stomach was insufflated. The scope was passed through the pylorus to the second portion of the duodenum and slowly withdrawn. The following findings were noted. Duodenum was unremarkable. Stomach was unremarkable. GE junction measured approximately 39 cm. The GE junction itself was highly irregular with a tongue of, what appeared to be, intestinal metaplasia going up laterally at distance of approximately 5 cm. Biopsies were taken circumferentially around the GE junction and up this tongue of the metaplasia. No evidence of any tumor was noted. The remainder of the esophageal exam was unremarkable. The stomach was deflated. The scope was removed. Our attention was then turned to the colon. Digital rectal exam was performed. No marked abnormality was noted. Flexible colonoscope was inserted and advanced to the cecum. The prep was excellent. The following findings were noted. Ascending colon, unremarkable. Transverse colon, distal transverse colon, a small polypoid lesion, biopsied with the hot loop snare and sent for permanent. Descending colon, a small pedunculated polyp, biopsied with the hot loop, and sent for permanent. Sigmoid, sigmoid diverticulosis and a small polyp, biopsied with the hot loop snare and sent for permanent. Rectum and anus, unremarkable. Colon was deflated. The scope was removed. The patient tolerated the procedure well and was taken to Recovery in a good condition. /[id number] /MODL
--- NOTE | 2018-03-12 09:57 | PCM.OPNOTE ---
- General Post-Op/Procedure Note Date of Surgery/Procedure: 03/12/18 Operative Procedure(s): egd with bx. c scope with bx Findings: Barretts esophagus colon polyps transverse, descending and sigmoid sigmoid diverticulosis Pre Op Diagnosis: colon cancer screening. hx of Wilson's esophagus Post-Op Diagnosis: Barretts esophagus. colon polyps transverse, descending and sigmoid. sigmoid diverticulosis Anesthesia Technique: MAC Primary Surgeon: Mt Mcdowell Anesthesia Provider: Kendra Mendez Pathology: esophagus colon polyps transverse, descending and sigmoid Complications: None Condition: Good Free Text/Narrative:: see dictation
[2018-03-12 10:09] VITALS: BP 124/76
== END 2018-03-12 10:00 | disposition home or self-care (01) ==
LOC: FB.SDS 06:46
PROVIDERS: ATTEND Surgery
DX: Z12.11 Encounter for screening for malignant neoplasm of colon (principal); K22.70 Barrett's esophagus without dysplasia; D12.4 Benign neoplasm of descending colon; D12.5 Benign neoplasm of sigmoid colon; K63.5 Polyp of colon; Z79.899 Other long term (current) drug therapy; H25.13 Age-related nuclear cataract, bilateral; H52.03 Hypermetropia, bilateral; Z98.890 Other specified postprocedural states; Z87.891 Personal history of nicotine dependence
CPT/HCPCS: 00813; 43239; 45384; 45385; J2250; J2704; J3010; J7120; 88305; 88313

== ENCOUNTER 2023-06-24 08:22 | Day surgery (SDC) | payer MEDICARE ==
[2023-06-24] MEDS ORDERED: Propofol 200 MG/20 ML SDV IV ONE (08:23)
[2023-06-24] MEDS ORDERED: Lidocaine 2% 5 ML SDV ONE (08:23)
[2023-06-24] MEDS ORDERED: Lidocaine 2% 5 ML SDV IV ONE (08:23)
[2023-06-24] MEDS ORDERED: Sodium Chloride 0.9% 10 ML Syringe FLUSH PRN (08:30)
[2023-06-24] MEDS ORDERED: Lactated Ringers 1,000 ML IV SCH (08:30)
[2023-06-24 09:46] VITALS: BP 126/84; PULSE 85
== END 2023-06-24 12:00 | disposition home or self-care (01) ==
LOC: FB.SDS 08:22
PROVIDERS: ATTEND Surgery
DX: K22.70 Barrett's esophagus without dysplasia (principal); K29.50 Unspecified chronic gastritis without bleeding; K44.9 Diaphragmatic hernia without obstruction or gangrene; E78.5 Hyperlipidemia, unspecified; K21.9 Gastro-esophageal reflux disease without esophagitis; I71.9 Aortic aneurysm of unspecified site, without rupture; E66.9 Obesity, unspecified; Z68.36 Body mass index [BMI] 36.0-36.9, adult; Z87.891 Personal history of nicotine dependence
CPT/HCPCS: 00731; 43239; 88305; 88342; 99100; J2704; J7120

== ENCOUNTER 2024-10-23 04:44 | Emergency (ER) | payer BC, MEDICARE ==
[2024-10-23] MEDS: Ondansetron 4 MG/2 ML SDV ONE (05:07)
[2024-10-23] MEDS: Ondansetron 4 MG/2 ML SDV IVPUSH ONE (05:07)
[2024-10-23 05:11] LABS: HEMATOCRIT 47.7 % (38.3-50.1); MEAN CORPUSCULAR HEMOGLOBIN 30.8 pg (27.0-33.3); MEAN CORPUSCULAR HGB CONC 33.5 g/dL (28.7-35.3); MEAN CORPUSCULAR VOLUME 91.9 fL (80.8-98.7); MEAN PLATELET VOLUME 8.5 fL (6.7-11.0); PLATELET COUNT,PLT 219 x10(3)uL (117-477); RED BLOOD CELL COUNT 5.19 x10(6)uL (3.90-5.90); RED CELL DISTRIBUTION WIDTH 14.7 % (12.4-15.0); WHITE BLOOD CELL COUNT,WBC 12.2 x10-3/uL (3.2-10.1)
[2024-10-23] MEDS: Labetalol 20 MG/4 ML Syringe ONE (05:14)
[2024-10-23] MEDS: Labetalol 20 MG/4 ML Syringe IVPUSH ONE (05:14)
[2024-10-23] MEDS: Sodium Chloride 0.9% 10 ML Syringe FLUSH PRN (05:15)
[2024-10-23 05:18] LABS: BLOOD UREA NITROGEN,BUN 20 mg/dL (7-18); BUN/CREATININE RATIO 15.4 (9-20); CALCIUM 8.9 mg/dL (8.6-10.2); CARBON DIOXIDE,CO2 25 mmol/L (21-32); CHLORIDE,CL 104 mmol/L (100-110); CREATININE 1.3 mg/dL (0.70-1.30); ESTIMATED GFR 58 mL/min (>60); GLUCOSE RANDOM 180 mg/dL (80-116); POTASSIUM,K 3.5 mmol/L (3.5-5.3); SODIUM,NA 141 mmol/L (135-145)
[2024-10-23] MEDS: hydrALAZINE 20 MG/ML SDV IVPUSH ONE (05:22)
[2024-10-23 05:27] LABS: INR 1.76 (1.00-1.24); PROTHROMBIN TIME 17.5 sec (9.0-11.1); PTT,PARTIAL THROMBOPLSTIN TIME 28.6 SECONDS (24.4-33.2)
[2024-10-23 05:29] LABS: A/G RATIO 0.8; ALANINE AMINOTRANSFERASE,ALT 39 U/L (12-36); ALBUMIN 3.6 g/dL (3.2-4.6); ALKALINE PHOSPHATASE 132 IU/L (56-112); ASPARTATE AMNIOTRANSFERASE,AST 23 IU/L (5-25); BILIRUBIN TOTAL 0.6 mg/dL (0.1-1.3); PROTEIN TOTAL,TP 7.9 g/dL (6.0-8.0)
[2024-10-23 05:33] LABS: BAND PERCENT MAN 5 % (0-6); LYMPHOCYTES PERCENT MAN 8 % (13-37); MONOCYTES PERCENT MAN 3 % (4-12); SEG NEUTROPHILS PERCENT MAN 84 % (46-82)
[2024-10-23] MEDS: fentaNYL 100 MCG/2 ML SDV IVPUSH ONE (06:14)
[2024-10-23] MEDS: fentaNYL 100 MCG/2 ML SDV ONE (06:22)
[2024-10-23 06:51] VITALS: BP 128/75; PULSE 86
== END 2024-10-23 06:30 ==
LOC: FB.ED 04:44
DX: S06.6XAA Traumatic subarachnoid hemorrhage with loss of consciousness status unknown, initial encounter (principal); S09.93XA Unspecified injury of face, initial encounter; K22.70 Barrett's esophagus without dysplasia; E78.5 Hyperlipidemia, unspecified; I10 Essential (primary) hypertension; K21.9 Gastro-esophageal reflux disease without esophagitis; E78.00 Pure hypercholesterolemia, unspecified; E66.9 Obesity, unspecified; Z88.8 Allergy status to other drugs, medicaments and biological substances; Z79.899 Other long term (current) drug therapy; Z90.49 Acquired absence of other specified parts of digestive tract; X58.XXXA Exposure to other specified factors, initial encounter
CPT/HCPCS: 36415; 70450; 71045; 80053; 80307; 84484; 85025; 85610; 85730; 93005; 93010; 96365; 96375; 99285; 99285-25; J0360; J1920; J2405; J2597; J3010